=== PATIENT | male | born 1985 | race American Indian/Alaskan Native ===

== ENCOUNTER 2017-08-25 16:55 | Emergency (ER) | payer OTHER ==
[2017-08-25 17:01] VITALS: BP 141/89
--- NOTE | 2017-08-25 17:24 | XRay Report ---
FINAL REPORT PROCEDURE: XR CHEST ROUTINE 2V TECHNIQUE: PA and lateral chest radiographs were obtained. CPT 56452 HISTORY: cough COMPARISON: 05/07/2017 FINDINGS: Heart: Normal. Mediastinum/Vessels: Normal. Lungs/Pleural space: Lungs are hyperinflated. There are no confluent infiltrates or mass lesions. Pleural spaces are clear.. Bony thorax: No acute osseous abnormality. Other: IMPRESSION: No acute pulmonary process..
--- NOTE | 2017-08-25 17:27 | Emergency Department Report ---
- General Chief Complaint: Upper Respiratory Infection Stated Complaint: ASTHMA Time Seen by Provider: 08/25/17 17:20 Source: patient Mode of arrival: Ambulatory Limitations: No Limitations - History of Present Illness Initial Comments: 32-year-old -[place] male comes in for productive cough of yellow sputum ID aches sniffles and wheezing 2 days. Patient reports that he's been using his albuterol inhaler and inhaler that has a dennis and blue top that was given to him he reports that is similar to Advair. He has taken no other medications. He does have a past medical history of asthma. He denies any fever chills nausea or vomiting. - Related Data Previous Rx's Medication Instructions Recorded Last Taken Type ALBUTEROL Inhaler [ProAir HFA 2 puff IH QID PRN #1 inhalation 08/25/17 Unknown Rx Inhaler] Fluticasone (Nf) [Flovent Hfa(Nf)] 2 puff IH BID #1 puff 08/25/17 Unknown Rx Allergies Allergy/AdvReac Type Severity Reaction Status Date / Time No Known Allergies Allergy Unverified 08/25/17 17:01 ED Review of Systems ROS: Stated complaint: ASTHMA Other details as noted in HPI Constitutional: denies: chills, fever Eyes: denies: eye pain, eye discharge, vision change ENT: congestion (nasal). denies: ear pain, throat pain Respiratory: cough, wheezing Cardiovascular: denies: chest pain, palpitations Endocrine: no symptoms reported Gastrointestinal: denies: abdominal pain, nausea, diarrhea Skin: denies: rash, lesions Psychiatric: denies: anxiety, depression Hematological/Lymphatic: denies: easy bleeding, easy bruising ED Past Medical Hx - Past Medical History Hx Asthma: Yes - Surgical History Past Surgical History?: No - Social History Smoking Status: Current Every Day Smoker Substance Use Type: None - Medications Home Medications: Home Medications Medication Instructions Recorded Confirmed Last Taken Type ALBUTEROL Inhaler [ProAir HFA 2 puff IH QID PRN #1 inhalation 08/25/17 Unknown Rx Inhaler] Fluticasone (Nf) [Flovent Hfa(Nf)] 2 puff IH BID #1 puff 08/25/17 Unknown Rx ED Physical Exam - General Limitations: No Limitations General appearance: alert, in no apparent distress - Head Head exam: Present: atraumatic, normocephalic - Eye Eye exam: Present: normal appearance - ENT ENT exam: Present: mucous membranes moist - Neck Neck exam: Present: normal inspection - Respiratory Respiratory exam: Present: wheezes - Cardiovascular Cardiovascular Exam: Present: regular rate, normal rhythm. Absent: systolic murmur, diastolic murmur, rubs, gallop - GI/Abdominal GI/Abdominal exam: Present: soft, normal bowel sounds - Rectal Rectal exam: Present: deferred - Extremities Exam Extremities exam: Present: normal inspection - Back Exam Back exam: Present: normal inspection - Neurological Exam Neurological exam: Present: alert, oriented X3 - Psychiatric Psychiatric exam: Present: normal affect, normal mood - Skin Skin exam: Present: warm, dry, intact, normal color. Absent: rash ED Course Vital Signs 08/25/17 08/25/17 16:58 19:06 Temperature 97.8 F Pulse Rate 96 H Pulse Rate [ 69 Anterior Bilateral Throughout] Respiratory 16 Rate Respiratory 18 Rate [Anterior Bilateral Throughout] Blood Pressure 141/89 O2 Sat by Pulse 97 Oximetry - Reevaluation(s) Reevaluation #1: 08/25/17 19:30 SHEENT lungs are clear patient reports that he feels much better after the second nebulizer treatment. ED Medical Decision Making - Medical Decision Making Patient evaluated by this provider fast track. Discussed the patient we'll give him a DuoNeb and a shot of dexamethasone methadone 80 mg IM. Discussed with patient his face x-ray came back within normal limits. Discharge patient home on an albuterol inhaler and Flovent patient verbalized understanding. Critical care attestation.: If time is entered above; I have spent that time in minutes in the direct care of this critically ill patient, excluding procedure time. ED Disposition Clinical Impression: Asthma Qualifiers: Asthma severity: unspecified severity Asthma persistence: unspecified Asthma complication type: with acute exacerbation Qualified Code(s): J45.901 - Unspecified asthma with (acute) exacerbation Disposition: -01 TO HOME OR SELFCARE Is pt being admited?: No Does the pt Need Aspirin: No Condition: Stable Instructions: Asthma (ED) Additional Instructions: Please use inhalers as prescribed. Follow-up with the primary care provider in 3-5 days. Prescriptions: ALBUTEROL Inhaler [ProAir HFA Inhaler] 2 puff IH QID PRN #1 inhalation PRN Reason: Shortness Of Breath Fluticasone (Nf) [Flovent Hfa(Nf)] 2 puff IH BID #1 puff Referrals: PRIMARY CARE, [Primary Care Provider] - 3-5 Days [facility] [Outside] - 3-5 Days Forms: Work/School Release Form(ED)
[2017-08-25] MEDS ORDERED: DECADRON IM ONE (17:39)
[2017-08-25] MEDS: DUONEB *Not for PRN Use IH ONE ×2 (18:05→19:05)
[2017-08-25] MEDS ORDERED: PROVENTIL IH ONE (18:47)
== END 2017-08-25 19:51 | disposition home or self-care (01) ==
LOC: ED 16:55
DX: J45.901 Unspecified asthma with (acute) exacerbation (principal); F17.200 Nicotine dependence, unspecified, uncomplicated
CPT/HCPCS: 71020; 87400; 94640; 96372; 99283; J1100